=== PATIENT | male | born 1980 | race African-American/Black ===

== ENCOUNTER 2019-02-13 12:10 | Inpatient (IN) | payer OTHER ==
[~2019-02-13] VITALS: Ht 190.5 cm; Wt 108.9 kg
--- NOTE | 2019-02-13 12:25 | NUR ---
PT BIBA FROM C/O CHEST PAIN FOR 2 DAYS. PER MEDICS PT WAS WAITING AT A BUS STOP. PT WAS GIVEN NITRO IN FIELD FOR CHEST PAIN AND DEVELOPED OLIVEIRA POST ADM. PT SQUIRMING AND STATING HE IS UNCOMFORTABLE. VSS AT THIS TIME. PT STS "THIS CHEST PAIN FEELS LIKE MY HEART ATTACK LAST YEAR."
--- NOTE | 2019-02-13 12:41 | NUR ---
PT REPORTS HEAD PAIN TO TOP OF HEAD. NO CHANGES IN MENTAL STATUS. INFOREMD PT HE IS NEXT TO BE SEEN AT THIS TIME.
--- NOTE | 2019-02-13 13:21 | NUR ---
KETAMINE 25MG GIVEN R INTRANASALLY FOR PAIN. WILL WAIT TO GIVE REST OF COMPLETE DOSE. PT IS ON FULL MONITORS
--- NOTE | 2019-02-13 13:28 | NUR ---
THE REST OF KETAMINE 25MG INTRANASAL DOSE GIVEN TO PT. NO SIDE EFFECTS SEEN AT THIS TIME
[2019-02-13 13:33] LABS: CALCIUM 8.3 mg/dL (8.5-10.1); CARBON DIOXIDE 26.5 mmol/L (21-32); CHLORIDE SERUM 103 mmol/L (98-107); CREATININE SERUM 0.8 mg/dL (0.7-1.3); GFR1 > 60 mL/min; GLUCOSE SERUM 79 mg/dL (74-106); SODIUM SERUM 139 mmol/L (136-145)
--- NOTE | 2019-02-13 13:35 | NUR ---
PT SITTING ON GURNEY. LIGHTS OFF FOR COMFORT. CALL LIGHT IS IN REACH. PT REPORTS PAIN DECREASED BUT AT 6/10
[2019-02-13 13:39] LABS: ALKALINE PHOSPHATASE 74 U/L (46-116); ALT/SGPT 19 U/L (16-63); AST/SGOT 23 U/L (15-37); BILIRUBIN TOTAL 0.3 mg/dL (0.20-1.00); TOTAL PROTEIN, SERUM 7.5 g/dL (6.4-8.2)
[2019-02-13 13:41] LABS: ALBUMIN 3.3 g/dL (3.4-5.0)
[2019-02-13 14:05] LABS: BASOPHIL % 0.3 % (0-2)
[2019-02-13 14:08] LABS: PLATELET COUNT 99 x10^3mcL (130-400)
--- NOTE | 2019-02-13 14:31 | NUR ---
INFORMED DR BANKS PT REQUESTING PAIN MEDICATION
--- NOTE | 2019-02-13 14:42 | NUR ---
REPORT GIVEN TO ENID AGUIRRE
--- NOTE | 2019-02-13 15:15 | NUR ---
PT RESTING COMFORTABLY ON GURNEY. BREATHING EVEN UNLABORED. PT C/O PAIN TO PACEMAKER SITE. PT REQUESTING FOOD. OK FOR FOOD BY DR. BANKS. PT GIVEN SANDWICH AND SPRITE. CONTINUE TO MONITOR.
--- NOTE | 2019-02-13 16:52 | NUR ---
REPORT GIVEN TO TAB
[2019-02-13 16:54] LABS: T3 TOTAL 1.08 ng/mL
[2019-02-13] MEDS ORDERED: HYDROCHLOROTHIA25 MG PO (16:58)
[2019-02-13] MEDS ORDERED: KEPPRA500 MG PO (16:59)
[2019-02-13] MEDS ORDERED: MULTIVITAMIN1 SGL (16:59)
[2019-02-13] MEDS ORDERED: GARLIC1000 MG PO (16:59)
[2019-02-13] MEDS ORDERED: COMPLEX B1001 TER PO (17:00)
[2019-02-13] MEDS ORDERED: ALPRAZOLAM2 MG PO (17:00)
[2019-02-13] MEDS ORDERED: POTASSIUM CHLO10 MEQ PO (17:01)
[2019-02-13] MEDS ORDERED: PHENYTOIN SODI100 M4 PO (17:02)
[2019-02-13] MEDS ORDERED: TEGRETOL200 MG PO (17:04)
[2019-02-13] MEDS ORDERED: COLON HERBAL C1 EACH PO (17:05)
[2019-02-13] MEDS ORDERED: LOTENSIN20 MG PO (17:06)
[2019-02-13] MEDS ORDERED: CALCIUM + D3 E1 EACH PO (17:07)
[2019-02-13] MEDS ORDERED: FISH OIL1000 MG PO (17:07)
[2019-02-13] MEDS ORDERED: FUROSEMIDE40 MG PO (17:08)
[2019-02-13] MEDS ORDERED: COLACE100 MG PO (17:08)
[2019-02-13] MEDS ORDERED: BALANCE B PO (17:12)
[2019-02-13] MEDS ORDERED: DIPHENHYDRAMINE50 M3 PO (17:15)
[2019-02-13] MEDS ORDERED: VENTOLIN H0.09 MG/A1 INH (17:17)
[2019-02-13] MEDS ORDERED: METFORMIN ER500 M1 PO (17:18)
[2019-02-13] MEDS ORDERED: NEU300 PO (17:19)
[2019-02-13 17:54] LABS: MAGNESIUM 2.1 mg/dL (1.8-2.4); PHOSPHOROUS 2.6 mg/dL (2.5-4.9)
[2019-02-13 18:00] LABS: CHOLESTEROL/HDL RATIO 2.2
[2019-02-13 18:08] VITALS: BP 124/73
[2019-02-13 18:19] LABS: FREE T4 0.84 ng/dL (0.76-1.46); FREE THYROXINE INDEX 1.6 ug/dL (1.4-4.5)
--- NOTE | 2019-02-13 18:22 | NUR ---
RECEIVED PT FROM ER, PT ADMIT FOR CHEST PAIN, PT IS A/O X4, VERBAL RESPONSIVE, ABLE TO TELL WHAT HE NEEDS. LEFT FACIAL DROOP NOTED. AND LEFT SIDE WEAKNESS NOTED. DUE TO HX STROKE 1 YEAR AGO. LUNG SOUND CLEAR BILATERAL, NO COUGH, NO SOB, PT IS ON TELE 9, NSR, C/O CHEST PAIN 9/10 AND RADIATE TO JAW, BOWEL SOUND PRESENT ALL 4 QUADRANTS, NO DISTENTION, NO TENDER. PEDAL PULSE PRESENT BOTH FEET, NO EDEMA, IV AT LEFT HAND, NO LEAKING,NO INFILTRAITON. ALL ADLS ASSIST, ALL NEED MET, CALL LIGHT IN REACH, WILL CONTINUE TO MONITOR.
--- NOTE | 2019-02-13 18:28 | NUR ---
PATIENT A/OX4, ABLE TO MAKE NEEDS KNOWN AND FOLLOW COMMANDS, VOICE RASPY BUT SPEECH CLEAR. FACIAL ASSYMETRY AND LEFT TOWER HAND STRENGTH WEAKNESS NOTED BUT PATIENT DENIES NUMBNESS/TINGLING. PERRLA NOTED. TELE [address] READING SR, REPORTS PRESSURE CHEST PAIN 8/10 AND REQUESTING FOR NITRO AND MORPHINE. NITRO SL OFFERED BUT REFUSING "I'LL GET A HEADACHE, I NEED TO TAKE MORPHINE WITH IT, BEFORE I CAME UP THE DR SAID HE WAS GONNA ORDER NITRO AND MORPHINE". NO MORPHINE ORDERED, DR MARIE PAGED TWICE AND PATIENT MADE AWARE. PERIPHERAL PULSES PALPABLE, TRACE EDEMA NOTED. LUNGS CTA, NO RESP DISTRESS NOTED ON RA. BOWEL SOUNDS ACTIVE, LAST BM STATED THIS MORNING NORMAL. STATES HIS LEFT SIDE IS WEAK. IV ACCESS TO LFA SITE WNL. ORIENTED PATIENT TO ROOM AND CALL LIGHT WITHIN REACH. PENDING NEW ORDERS.
--- NOTE | 2019-02-13 19:15 | NUR ---
REPORT RECEIVED FROM DAY SHIFT RN. PATIENT WAS SEEN AND IS RESTING COMFORTABLY IN BED. NO DISTRESS NOTED. BREATHING EVEN AND UNLABORED ON ROOM AIR. NO SOB OR RESP DISTRESS NOTED. C/O 8/10 CHEST PAIN/PRESSURE RADIATING TO JAW AND RIGHT SHOULDER. PRN NITROSTAT SL OFFERED TO PATIENT, BUT PATIENT REFUSED. STATES "I NEED TO TAKE NITRO WITH MORPHINE. IT GIVE ME A HEADACHE. I DON'T WANT THE NITRO UNLESS I GET MORPHINE WITH IT". INFORMED PATIENT THAT MORPHINE ORDER HAS NOT BEEN PUT IN YET. DAY SHIFT RN NOTIFIED RESIDENT. WILL ALSO NOTIFY [employer] RESIDENT. NO OTHER C/O PAIN. A/OX4 WITH LEFT SIDED FACIAL DROOP AND LEFT SIDED WEAKNES. HX STROKE. TELE [address] IV TO THE LFA, 18G. SALINE LOCK. PATENT AND INTACT. NO REDNESS OR SWELLING NOTED. COMFORT AND SAFETY MEASURES IN PLACE. BED IS LOCKED AND IN THE LOWEST POSITION. SIDE RAILS UP X2. CALL LIGHT IS WITHIN REACH. SEIZURE PRECAUTIONS IN PLACE. WILL CONTINUE TO MONITOR.
--- NOTE | 2019-02-13 19:18 | NUR ---
CARE ENDORSED TO NOC NURSE, BEDSIDE REPORT GIVEN. PATIENT REQUESTING FOR STATUS OF MORPHINE ORDER, C/O SEVERE CHEST PAIN. NO ORDER YET BUT DR MARIE AWARE. NOC NURSE TO NOTIFY NOC SHIFT RESIDENT. NO OTHER CHANGE IN CONDITION.
--- NOTE | 2019-02-13 19:18 | NUR ---
NOTIFIED DR SCHWARTZ ABOUT PATIENT'S REQUEST FOR MORPHINE. HE SAID HE WILL PLACE ORDERS.
--- NOTE | 2019-02-13 19:37 | NUR ---
CALLED PHARMACY TO HAVE MORPHINE VERIFIED. DOUBLE CHECKED WITH PATIENT IF HE HAS ANY ALLERGY TO MORPHINE. PATIENT STATES HE HAS TAKEN MORPHINE BEFROE AND HAS NEVER HAD A REACTION. PATIENT SAID, "NO. I DONT HAVE ANY ALLERGY TO MORPHINE. I TAKE IT ALL THE TIME AT HOME. THAT IS WHAT I TAKE AT HOME." RELAYED INFORMATION TO [facility].
[2019-02-13 19:53] VITALS: BP 114/69
--- NOTE | 2019-02-13 19:53 | NUR ---
C/O 8/10 CHEST PAIN/PRESSURE RADIATING TO THE JAW AND RIGHT SHOULDER. PRN NITROSTAT SUBLINGUAL AND MORPHINE WERE ADMINISTERED PRESCRIBED. EDUCATED PATIENT ON MEDS AND POSS SIDE EFFECTS. DEMONSTRATED UNDERSTANDING. NO DISTRESS NOTED. BREATHING EVEN AND UNLABORED. ALL NEEDS AND CONCERNS ADDRESSED. CALL LIGHT IS WITHIN REACH. SAFETY MEASURES IN PLACE. WILL CONTINUE TO MONITOR.
--- NOTE | 2019-02-13 20:23 | NUR ---
MORPHINE PAIN REASSESSMENT COMPLETED. NO ADVERSE REACTIONS NOTED. CHEST PAIN IMPROVED. NO DISTRESS NOTED. BREATHING EVEN AND UNLABORED. CALL LIGHT IS WITHIN REACH. WILL CONTINUE TO MONITOR.
--- NOTE | 2019-02-13 20:40 | NUR ---
ON DILANTIN. ASKED DR SCHWARTZ TO ADD PHENYTOIN SERUM LABS.
--- NOTE | 2019-02-13 21:12 | NUR ---
PER MIGUEL PAYNE TO GIVE FIRST DOSE OF DILANTIN AT THIS TIME.
--- NOTE | 2019-02-13 21:34 | NUR ---
COLLECTED URINE FOR UA/UDS.
--- NOTE | 2019-02-13 22:29 | NUR ---
C/O INSOMNIA AND REQUESTING MEDICATION TO AID IN SLEEP. PRN BENEDRYL WAS ADMINISTERED PRESCRIBED. EDUCATED PATIENT ON MED. NO DISTRESS NOTED. SAFETY MEASURES IN PLACE. WILL CONTINUE TO MONITOR.
[2019-02-13 22:32] LABS: UA SPECIFIC GRAVITY 1.015 (1.005-1.035); microscopic required? YES; urine erythrocyte NEGATIVE (NEGATIVE)
[2019-02-13 23:07] LABS: AMPHETAMINE QUAL UR NONE DETECTED (See below)
--- NOTE | 2019-02-13 23:47 | NUR ---
UA + FOR NITRATES AND MANY BACTERIA. NOTIFIED DR SCHWARTZ. AWAITING ORDERS. NO NEW ORDERS AT THIS TIME.
--- NOTE | 2019-02-14 01:11 | NUR ---
C/O 9/10 CHEST PAIN/PRESSURE RADIATING TO JAW AND RIGHT SHOULDER. PRN NITROSTAT SL AND MORPHINE ADMINISTERED PRESCRIBED. NO DISTRESS NOTED. BREATHIN EVEN AND UNLABORED. ROCEPHIN STARTED FOR POSTIVE UA. EDUCATED PATIENT ON ABX THERAPY. CALL LIGHT IS WITHIN REACH. WILL CONTINUE TO MONITOR.
--- NOTE | 2019-02-14 03:05 | NUR ---
RESTING IN BED WITH EYES CLOSED LAYING ON RIGHT SIDE. NO DISTRESS NOTED. BREATHIN EVEN AND UNLABORED ON ROOM AIR. SYMMETRIC CHEST RISE AND FALL. SEIZURE PRECAUTIONS IN PLACE. NO S/S OF PAIN NOTED. SAFETY MEASURES IN PLACE. CALL LIGHT IS WITHIN REACH. WILL CONTINUE TO MONITOR.
[2019-02-14 05:27] VITALS: BP 108/61
--- NOTE | 2019-02-14 05:28 | NUR ---
C/O 8/10 CHEST PRESSURE. DID NOT WANT PRN NITROSTAT. ONLY REQUESTED PRN MORPHINE. ADMINISTERED PRESCRIBED. NO DISTRESS NOTED. BREATHING EVEN AND UNLABORED. WILL CONTINUE TO MONIOR.
--- NOTE | 2019-02-14 06:07 | NUR ---
PAGE GATED DR SCHWARTZ FOR POSSIBLE PACEMAKER INTERROGATION.
--- NOTE | 2019-02-14 06:09 | NUR ---
RESTED IN LONG INTERVALS THROUGHOUT THE NIGHT. NO ACUTE CHANGES NOTED. NO DISTRESS NOTED. BREATHING EVEN AND UNLABORED ON ROOM AIR. NO SOB OR RESP DISTRESS NOTED. IV TO THE LFA, SALINE LOCK. PATENT AND INTACT. NO REDNESS OR SWELLING NOTED. C/O CHEST PRESSURE THROUGHOUT THE NIGHT. MEDICATED WITH PRN NITRO X2 AND PRN MORPHINE X3 WITH GOOD RELIEF. START ABX THERAPY FOR UTI. NO ADVERSE REACTIONS NOTED. SEIZURES PRECAUTIONS IN PLACE. NO SEIZURES NOTED. LEFT SIDED WEAKNESS. SAFETY MEASURES IN PLACE. ALL NEEDS AND CONCERNS ADDRESSED. WILL ENDORSE CARE TO DAY SHIFT RN.
[2019-02-14 07:34] LABS: CALCIUM 7.9 mg/dL (8.5-10.1); CARBON DIOXIDE 24.3 mmol/L (21-32); CHLORIDE SERUM 106 mmol/L (98-107); CREATININE SERUM 0.7 mg/dL (0.7-1.3); GFR1 > 60 mL/min; GLUCOSE SERUM 76 mg/dL (74-106); POTASSIUM SERUM 4.1 mmol/L (3.5-5.1); SODIUM SERUM 141 mmol/L (136-145)
--- NOTE | 2019-02-14 07:39 | NUR ---
RECEIVED AWAKE, ALERT AND ORIENTED. IN NO ACUTE RESP. DISTRESS. VS STABLE. NO C/O PAIN OR DISCOMFORT AT THIS TIME. CALL LIGHT WITHIN REACH. WILL CONTINUE WITH PLAN OF CARE.
[2019-02-14 07:41] LABS: BASOPHIL % 0.4 % (0-2); RED CELL DISTRIBUTION WIDTH 14.3 % (11.5-14.5)
[2019-02-14 07:45] LABS: PLATELET COUNT 98 x10^3mcL (130-400)
[2019-02-14 08:04] VITALS: BP 107/61
--- NOTE | 2019-02-14 09:06 | NUR ---
PT C/O CHEST PAIN 10/10, MEDICATED WITH MORPHINE IVP PER ORDER. VSS. NO CHANGES TO TELE MONITOR. NO SOB NOTED. RN PERIOPERATIVE AT BEDSIDE. WILL CONTINUE TO MONITOR.
[2019-02-14 12:52] VITALS: BP 112/59
[2019-02-14 12:57] VITALS: BP 112/59
--- NOTE | 2019-02-14 15:12 | NUR ---
RESTING IN BED, NO DISTRESS NOTED. REPORTED PAIN RELIEF FROM MORPHINE. VS STABLE. PT PLACED IN MED/SURG BED PER ORDER. TELE BOX RETURNED TO THE UNIT.
[2019-02-14 16:07] VITALS: BP 96/63
--- NOTE | 2019-02-14 16:19 | NUR ---
RECEIVED A CALL FROM MR. HOLMAN -Brenna MACHINE INKER FROM [facility],STATED HE WILL FOLLOW UP ON PT UPON DC. STATED [facility] WILL PROVIDE TRANSPORTATION FOR PT IF NOTIFIED WITHIN 2 HRS. THE NUMBER TO CALL FOR TRANSPORTATION IS [phone].
--- NOTE | 2019-02-14 18:44 | NUR ---
PT C/O CHEST PAIN, STATED MY "PACEMAKER HURTS". RATED PAIN 10/10. MEDICATED WITH MORPHINE IVP PER ORDER. IN NO ACUTE RESP. DISTRESS. NO CHANGES IN VS. CALL LIGHT WITHIN REACH. WILL BE ENDORSED TO INCOMING SHIFT.
--- NOTE | 2019-02-14 19:10 | NUR ---
CARE ASSUMED FROM OUTGOING RN. PT RESTING COMFORTABLY IN BED. NO ACUTE DISTRESS NOTED. EVEN AND UNLABORED RESPIRATIONS ON RA. NO SOB NOTED. MEDSURG PT. IVL INTACT. C/O HEADACHE AND CHEST PAIN, WILL MEDICATE PER EMAR. BED IN LOWEST POSITION. SEIZURE PRECAUTION IN PLACE. SIDE RAILS UPX2. CALL LIGHT WITHIN REACH. WILL CONTINUE TO MONITOR.
[2019-02-14 20:57] VITALS: BP 116/68
--- NOTE | 2019-02-15 00:18 | NUR ---
PT ASLEEP COMFORTABLY IN BED. NO ACUTE DISTRESS NOTED. EVEN AND UNLABORED RESPIRATIONS ON RA. IVL INTACT. BED IN LOWEST POSITION. SIDE RAILS UPX2. CALL LIGHT WITHIN REACH. WILL CONTINUE TO MONITOR.
--- NOTE | 2019-02-15 06:50 | NUR ---
PT SLEPT COMFORTABLY IN INTERVALS THROUGHOUT THE SHIFT. ALL NEEDS TENDED TO AND MET. ALL SCHEDULED MEDICATIONS GIVEN. C/O HEADACHE AND CHEST PAIN MEDICATED PER EMAR. IVL PATENT AND INTACT. BED IN LOWEST POSITION. SEIZURE PRECAUTION IN PLACE. SIDE RAILS UPX2. CALL LIGHT WITHIN REACH. WILL ENDORSE TO ONCOMING SHIFT.
[2019-02-15 06:58] LABS: CARBON DIOXIDE 25.2 mmol/L (21-32); CHLORIDE SERUM 103 mmol/L (98-107); CREATININE SERUM 0.9 mg/dL (0.7-1.3); GFR1 > 60 mL/min; GLUCOSE SERUM 155 mg/dL (74-106); POTASSIUM SERUM 3.2 mmol/L (3.5-5.1); SODIUM SERUM 139 mmol/L (136-145)
[2019-02-15 07:12] LABS: BASOPHIL % 0.4 % (0-2); PLATELET COUNT 96 x10^3mcL (130-400); RED CELL DISTRIBUTION WIDTH 14.5 % (11.5-14.5)
--- NOTE | 2019-02-15 07:30 | NUR ---
RECEIVED IN NO RESP. DISTRESS. RECEIVING HHN TX PER RT. NO C/O PAIN AT THIS TIME. VS WNL. CALL LIGHT WITHIN REACH. WILL CONTINUE WITH PLAN OF CARE.
--- NOTE | 2019-02-15 08:38 | NUR ---
PT C/O MID CHEST PAIN 04/03. MEDICATED WITH MORPHINE PER ORDER.
[2019-02-15 09:17] VITALS: BP 106/55
--- NOTE | 2019-02-15 12:46 | NUR ---
C/O MID CHEST DISCOMFORT, NECK , SHOULDER AND HEADACHE 10/10. MORPHINE GIVEN IVP PER ORDER.
--- NOTE | 2019-02-15 13:00 | NUR ---
RECEIVED A CALL FROM Shahiya FOR +[facility]. DR. HOOK NOTIFIED.
[2019-02-15] MEDS ORDERED: CLOPIDOGREL75 M1 PO (13:29)
[2019-02-15] MEDS ORDERED: METOPROLOL TART25 M1 PO (13:30)
[2019-02-15] MEDS ORDERED: IMD60 PO (13:30)
[2019-02-15] MEDS ORDERED: MUPIROCIN2% TOP (13:31)
[2019-02-15 15:24] VITALS: BP 106/55
--- NOTE | 2019-02-15 15:49 | NUR ---
CALLED [facility] FOR PT'S RIDE HOME. SPOKE WITH MR. MARIE WHO ARRANGED TRSNAPORTATION FOR 5PM. RESERVATION ID# [id number]
[2019-02-15 16:20] VITALS: BP 133/77
--- NOTE | 2019-02-15 16:47 | NUR ---
PT WILL BE DC;D HOME THIS PM. HL REMOVED AND SITE CLEAR. PT WAITING FOR RIDE HOME.
--- NOTE | 2019-02-15 18:05 | NUR ---
PT DC'D HOME IN NO RESP. DISTRESS. AWAKE, ALERT AND ORIENTED. VS STABLE. NO C/O CHEST PAIN OR DISCOMFORT. HL REMOVED AND SITE/CATH INTACT. NO REDNESS OR SWELLING NOTED AT THE SITE. DC INSTRUCTIONS REVIEWED WITH PT AND RX GIVEN. PERSONAL BELONGINGS TAKEN HOME.
[2019-02-17 08:52] VITALS: Ht 190.5 cm; Wt 108.9 kg
== END 2019-02-15 18:25 | disposition home or self-care (01) | DRG 756 ==
LOC: ED 12:10 → DU 15:58 → MU 02-14 15:12
PROVIDERS: Emergency Medicine; ADMIT General Practice
DX: F41.9 Anxiety disorder, unspecified (principal); I11.0 Hypertensive heart disease with heart failure; I50.32 Chronic diastolic (congestive) heart failure; I69.354 Hemiplegia and hemiparesis following cerebral infarction affecting left non-dominant side; J45.20 Mild intermittent asthma, uncomplicated; D50.9 Iron deficiency anemia, unspecified; G47.33 Obstructive sleep apnea (adult) (pediatric); E78.5 Hyperlipidemia, unspecified; I25.2 Old myocardial infarction; Z98.84 Bariatric surgery status; Z68.30 Body mass index [BMI] 30.0-30.9, adult; Z95.810 Presence of automatic (implantable) cardiac defibrillator
CPT/HCPCS: 83880; 84439; G0378; J0696; J1940; J2270; J3490; J3535; J7050; J7060; J7620; J7626; Q0163

== ENCOUNTER 2019-04-18 14:56 | Emergency (ER) | payer OTHER ==
[~2019-04-18] VITALS: Ht 190.5 cm; Wt 107.0 kg
[~2019-04-18 14:56] MED LIST: ALPRAZOLAM2 MG PO; BALANCE B PO; CALCIUM + D3 E1 EACH PO; CLOPIDOGREL75 M1 PO; COLACE100 MG PO; COLON HERBAL C1 EACH PO; COMPLEX B1001 TER PO; DIPHENHYDRAMINE50 M3 PO; FISH OIL1000 MG PO; FUROSEMIDE40 MG PO; GARLIC1000 MG PO; HYDROCHLOROTHIA25 MG PO; IMD60 PO; KEPPRA500 MG PO; LOTENSIN20 MG PO; METFORMIN ER500 M1 PO; METOPROLOL TART25 M1 PO; MULTIVITAMIN1 SGL; MUPIROCIN2% TOP; NEU300 PO; PHENYTOIN SODI100 M4 PO; POTASSIUM CHLO10 MEQ PO; TEGRETOL200 MG PO; VENTOLIN H0.09 MG/A1 INH
[2019-04-18 15:01] VITALS: Ht 190.5 cm; Wt 107.0 kg
[2019-04-18 16:47] LABS: PLATELET COUNT 117 x10^3mcL (130-400)
[2019-04-18 16:50] LABS: CALCIUM 8.1 mg/dL (8.5-10.1); CARBON DIOXIDE 31.1 mmol/L (21-32); CHLORIDE SERUM 101 mmol/L (98-107); CREATININE SERUM 0.9 mg/dL (0.7-1.3); GFR1 > 60 mL/min; GLUCOSE SERUM 80 mg/dL (74-106); POTASSIUM SERUM 3.6 mmol/L (3.5-5.1); SODIUM SERUM 138 mmol/L (136-145)
[2019-04-18 16:54] LABS: ALBUMIN 3.6 g/dL (3.4-5.0); ALKALINE PHOSPHATASE 94 U/L (46-116); ALT/SGPT 23 U/L (16-63); AST/SGOT 23 U/L (15-37); BILIRUBIN DIRECT 0.08 mg/dL (0.0-0.2); BILIRUBIN TOTAL 0.2 mg/dL (0.20-1.00); LIPASE 65 IU/L (73-393)
[2019-04-18 19:35] LABS: microscopic required? NO
[2019-04-18 19:45] LABS: urine erythrocyte NEGATIVE (NEGATIVE)
[2019-04-18 21:05] VITALS: BP 131/74
== END 2019-04-18 21:05 | disposition home or self-care (01) ==
LOC: ED 14:56
PROVIDERS: Emergency Medicine
DX: R10.84 Generalized abdominal pain (principal); R11.2 Nausea with vomiting, unspecified; R63.0 Anorexia; I11.0 Hypertensive heart disease with heart failure; I50.9 Heart failure, unspecified; E11.9 Type 2 diabetes mellitus without complications; J45.909 Unspecified asthma, uncomplicated; Z98.890 Other specified postprocedural states
CPT/HCPCS: 83880; J2270; J2405; J2765; J7030; Q0092; Q9966; Q9967

== ENCOUNTER 2020-04-08 11:26 | Emergency (ER) | payer OTHER ==
[~2020-04-08] VITALS: Ht 188 cm; Wt 86.2 kg
[2020-04-08 11:34] VITALS: Ht 188 cm; Wt 86.2 kg
[2020-04-08 12:47] LABS: BASOPHIL % 0.4 % (0-2); RED CELL DISTRIBUTION WIDTH 13.9 % (11.5-14.5)
[2020-04-08 12:57] LABS: CARBON DIOXIDE 29.7 mmol/L (21-32); CHLORIDE SERUM 102 mmol/L (98-107); CREATININE SERUM 0.8 mg/dL (0.7-1.3); GFR1 > 60 mL/min; GLUCOSE SERUM 85 mg/dL (74-106); POTASSIUM SERUM 3.8 mmol/L (3.5-5.1); SODIUM SERUM 136 mmol/L (136-145)
[2020-04-08 13:01] LABS: ALKALINE PHOSPHATASE 69 U/L (46-116); ALT/SGPT 35 U/L (16-63); AST/SGOT 34 U/L (15-37); BILIRUBIN TOTAL 0.1 mg/dL (0.20-1.00); LIPASE 129 IU/L (73-393); TOTAL PROTEIN, SERUM 6.8 g/dL (6.4-8.2)
[2020-04-08 13:08] LABS: ALBUMIN 3.3 g/dL (3.4-5.0)
[2020-04-08 13:58] LABS: PLATELET COUNT 123 x10^3mcL (130-400)
[2020-04-08 14:37] VITALS: BP 94/57
== END 2020-04-08 14:37 | disposition home or self-care (01) ==
LOC: ED 11:26
PROVIDERS: Emergency Medicine
DX: R10.13 Epigastric pain (principal); G89.29 Other chronic pain; R19.7 Diarrhea, unspecified; R11.10 Vomiting, unspecified; I50.9 Heart failure, unspecified; I11.0 Hypertensive heart disease with heart failure; Z98.84 Bariatric surgery status; Z86.73 Personal history of transient ischemic attack (TIA), and cerebral infarction without residual deficits; E11.9 Type 2 diabetes mellitus without complications; Z88.6 Allergy status to analgesic agent; Z88.8 Allergy status to other drugs, medicaments and biological substances
CPT/HCPCS: 83880; J2270; J2405; J3490; J7030; Q0092